=== PATIENT | male | born 1990 | race Caucasian/White ===

== ENCOUNTER 2016-08-13 15:06 | Emergency (ER) | payer OTHER | END 2016-08-13 15:47 | disposition home or self-care (01) | LOC: ER 15:06 | DX: S40.012A Contusion of left shoulder, initial encounter (principal); F17.210 Nicotine dependence, cigarettes, uncomplicated; Z88.1 Allergy status to other antibiotic agents; W19.XXXA Unspecified fall, initial encounter ==